=== PATIENT | female | born 1985 | race Caucasian/White ===

== ENCOUNTER 2016-12-26 11:07 | Emergency (ER) | payer SELFPAY ==
[2016-12-26 11:16] VITALS: BP 129/80; TEMP 98.2; O2SAT 96
[2016-12-26] MEDS ORDERED: LIDOCAINE 1% W/ EPINEPHRINE 20 ML VIAL INJ ONE (11:37)
--- NOTE | 2016-12-26 11:38 | ED.PDOC ---
History of Present Illness - General Chief Complaint: Skin/Abrasion/Tear Stated Complaint: abscess right groin Time Seen by Provider: 12/26/16 11:31 Source: patient Exam Limitations: no limitations - History of Present Illness Initial Comments: She stated that started as painful knot one week ago and gradually got more painful and bigger tried warm tub bath but not getting better. Timing/Duration: other - 7 days Severity: moderate Improving Factors: nothing Worsening Factors: nothing Associated Symptoms: denies symptoms Allergies/Adverse Reactions: Allergies Cefaclor [From Ceclor] Allergy (Unknown, Verified 12/26/16 11:20) Home Medications: Ambulatory Orders Sulfamethoxazole-Trimethoprim [Bactrim Ds 800-160 mg] 1 tab PO BID #20 tab 12/26 Tramadol HCl 50 mg PO Q6HR PRN #20 tab 12/26/16 Review of Systems - Review of Systems Constitutional: States: no symptoms reported EENTM: States: no symptoms reported Respiratory: States: no symptoms reported Cardiology: States: no symptoms reported Gastrointestinal/Abdominal: States: no symptoms reported Genitourinary: States: no symptoms reported Musculoskeletal: States: no symptoms reported Skin: States: see HPI Neurological: States: no symptoms reported Past Medical History (General) - Patient Medical History Hx Seizures: No Hx Stroke: No Hx Dementia: No Hx Asthma: No Hx of COPD: No Hx Cardiac Disorders: No Hx Congestive Heart Failure: No Hx Pacemaker: No Hx Hypertension: No Hx Thyroid Disease: No Hx Diabetes: No Hx Gastroesophageal Reflux: No Hx Renal Disease: No Hx Cancer: No Hx of HIV: No Hx Hepatitis C: No Hx MRSA: No Surgical History: appendectomy - Vaccination History Hx Tetanus, Diphtheria Vaccination: No Hx Influenza Vaccination: No Hx Pneumococcal Vaccination: No - Social History Hx Tobacco Use: Yes Hx Alcohol Use: No Hx Substance Use: No Hx Substance Use Treatment: No Hx Depression: No - Female History Patient is a Female of Child Bearing Age (10 -59 yrs old): Yes Patient : No Family Medical History - Family History Mother Living Status: Hx Family Cancer: Yes - breast with repeated METs Physical Exam - Physical Exam General Appearance: Alert, Comfortable, No apparent distress Eye Exam: bilateral normal Ears, Nose, Throat: hearing grossly normal, normal ENT inspection, normal pharynx Neck: non-tender, full range of motion, supple Respiratory: chest non-tender, lungs clear, normal breath sounds, no respiratory distress, no accessory muscle use Cardiovascular/Chest: normal peripheral pulses, regular rate, rhythm, no edema, no gallop, no murmur Gastrointestinal/Abdominal: normal bowel sounds, non tender, soft, no organomegaly Extremity: normal range of motion, non-tender, normal inspection Neurologic: no motor/sensory deficits, alert, normal mood/affect, oriented x 3 Skin Exam: normal color, warm/dry, other - tender swelling 2 cm x 3 cm right groin with surrounding induration Procedures - Incision and Drainage #1 Site: right groin Procedure and Prep: sterile drapes applied - then skin incision made with blade 11,cotton tip applicator to break loculation, sterile dressings applied, gauze wick placed, irrigated, pus drained - 5 ml., other - chlorhexidine prep Departure - Departure Clinical Impression: Abscess of groin, right Time of Disposition: 12:17 Disposition: Discharge to Home or Self Care Condition: Good Instructions: DI for Skin Abscess Prescriptions: Tramadol HCl 50 mg PO Q6HR PRN #20 tab PRN Reason: Pain -- Generalized Sulfamethoxazole-Trimethoprim [Bactrim Ds 800-160 mg] 1 tab PO BID #20 tab Home Medications: Ambulatory Orders Sulfamethoxazole-Trimethoprim [Bactrim Ds 800-160 mg] 1 tab PO BID #20 tab 12/26 Tramadol HCl 50 mg PO Q6HR PRN #20 tab 12/26/16 Additional Instructions: RETURN TO EMERGENCY ROOM -[facility] for removal of packing 12/26/2016 PM
[2016-12-26] MEDS ORDERED: CHLORHEXIDINE GLUCONATE 4 % 15 ML UD TOP ONE (11:40)
[2016-12-26] MEDS ORDERED: NEOMYCIN-BACITRACIN-POLYMYXIN 0.9 GM UD TOP ONE (11:45)
[2016-12-26] MEDS ORDERED: TETANUS,DIPHTHERIA,PERTUSSIS 1 EA SYG IM ONE (12:16)
[2016-12-26] MEDS: SULFA/TRIMETH 800/160 (DS) TAB 1 EA TAB PO ONE ×2 (12:30→12:39)
== END 2016-12-26 12:40 | disposition home or self-care (01) ==
LOC: ER 11:07
DX: L02.214 Cutaneous abscess of groin (principal); Z23 Encounter for immunization; Z87.891 Personal history of nicotine dependence; Z88.3 Allergy status to other anti-infective agents

== ENCOUNTER 2017-03-21 09:38 | Emergency (ER) | payer SELFPAY ==
[2017-03-21] MEDS ORDERED: IPRATROPIUM/ALBUTEROL 3 ML VIAL NEB ONE (09:45)
--- NOTE | 2017-03-21 09:47 | ED.PDOC ---
History of Present Illness - General Chief Complaint: Respiratory Problem Stated Complaint: cough, congestion Time Seen by Provider: 03/21/17 09:39 Source: patient Exam Limitations: no limitations - History of Present Illness Initial Comments: the patient is a 32-year-old female presented to the emergency room secondary to one week of productive cough and fatigue. She is uncertain if she has had a fever. The patient does smoke. She does work at a [employer]. She reports the cough is mildly productive. No blood. No real chest pain other than with coughing. No history of pneumonia or COPD. Timing/Duration: 1 week Severity: moderate Improving Factors: nothing Worsening Factors: nothing Associated Symptoms: cough, malaise, shortness of breath Allergies/Adverse Reactions: Allergies Cefaclor [From Ceclor] Allergy (Unknown, Verified 03/21/17 09:46) Home Medications: Ambulatory Orders Azithromycin 500 mg PO DAILY #5 tab 03/21/17 predniSONE [Prednisone] 20 mg PO DAILY #3 tab 03/21/17 Review of Systems - Review of Systems Constitutional: States: fever, malaise EENTM: States: nose congestion Respiratory: States: cough, short of breath, wheezing - mildmild Cardiology: States: no symptoms reported Gastrointestinal/Abdominal: States: no symptoms reported Genitourinary: States: no symptoms reported Musculoskeletal: States: no symptoms reported Skin: States: no symptoms reported Neurological: States: no symptoms reported Endocrine: States: no symptoms reported Hematologic/Lymphatic: States: no symptoms reported All other Systems: No Change from Baseline Past Medical History (General) - Patient Medical History Hx Seizures: No Hx Stroke: No Hx Dementia: No Hx Asthma: No Hx of COPD: No Hx Cardiac Disorders: No Hx Congestive Heart Failure: No Hx Pacemaker: No Hx Hypertension: No Hx Thyroid Disease: No Hx Diabetes: No Hx Gastroesophageal Reflux: No Hx Renal Disease: No Hx Cancer: No Hx of HIV: No Hx Hepatitis C: No Hx MRSA: No Surgical History: no surgical history - Vaccination History Hx Tetanus, Diphtheria Vaccination: Yes Hx Influenza Vaccination: No Hx Pneumococcal Vaccination: No - Social History Hx Tobacco Use: Yes Hx Alcohol Use: No Hx Substance Use: No Hx Substance Use Treatment: No Hx Depression: No - Female History Patient is a Female of Child Bearing Age (10 -59 yrs old): Yes Patient : No Family Medical History - Family History Mother Living Status: Hx Family Cancer: Yes - breast with repeated METs Physical Exam - Physical Exam General Appearance: Alert, Comfortable, No apparent distress Eye Exam: bilateral normal Ears, Nose, Throat: hearing grossly normal, normal pharynx, nasal congestion Neck: non-tender, full range of motion, supple Respiratory: chest non-tender, no respiratory distress, no accessory muscle use , rales - in the right lower lobe Cardiovascular/Chest: normal peripheral pulses, regular rate, rhythm, no edema Peripheral Pulses: radial,right: 2+, radial,left: 2+, dorsalis pedis,right: 2+, dorsalis pedis,left: 2+ Gastrointestinal/Abdominal: non tender, soft Rectal Exam: deferred Back Exam: normal inspection, no CVA tenderness, no vertebral tenderness Extremity: normal range of motion, non-tender, normal inspection, no pedal edema , normal capillary refill Neurologic: alert, normal mood/affect, oriented x 3 Skin Exam: normal color Comments: Vital Signs - 24 hr 03/21/17 09:40 Temperature 98.2 F Pulse Rate [ 68 Left Radial] Respiratory 16 Rate Blood Pressure 116/94 [Left Arm] O2 Sat by Pulse 98 Oximetry Progress - Progress Progress: 03/21/17 09:50 the patient is a 32-year-old female presenting with what appears to be a small right lower lobe pneumonia. She is not hypoxic and not febrile. She is not in distress. The patient will be placed on azithromycin for the next 5 days and oral prednisone for the next 3 days. She needs to stop smoking at least for the next few weeks. When she goes back to work she does need to wear a mask. A humidifier at night may also help to move up secretions. ER warnings were given. She can follow up with her primary care doctor early next week. - Results/Orders Results/Orders: Vital Signs - 24 hr 03/21/17 09:40 Temperature 98.2 F Pulse Rate [ 68 Left Radial] Respiratory 16 Rate Blood Pressure 116/94 [Left Arm] O2 Sat by Pulse 98 Oximetry Departure - Departure Clinical Impression: Pneumonia Qualifiers: Pneumonia type: due to unspecified organism Laterality: right Lung location: lower lobe of lung Qualified Code(s): J18.9 - Pneumonia, unspecified organism Disposition: Discharge to Home or Self Care Departure Forms: ED Discharge - Pt. Copy, Patient Portal Self Enrollment Instructions: Pneumonia-Adult Diet: regular diet Activity: increase activity as tolerated Prescriptions: Azithromycin 500 mg PO DAILY #5 tab predniSONE [Prednisone] 20 mg PO DAILY #3 tab Home Medications: Ambulatory Orders Azithromycin 500 mg PO DAILY #5 tab 03/21/17 predniSONE [Prednisone] 20 mg PO DAILY #3 tab 03/21/17 Additional Instructions: the patient is a 32-year-old female presenting with what appears to be a small right lower lobe pneumonia. She is not hypoxic and not febrile. She is not in distress. The patient will be placed on azithromycin for the next 5 days and oral prednisone for the next 3 days. She needs to stop smoking at least for the next few weeks. When she goes back to work she does need to wear a mask. A humidifier at night may also help to move up secretions. ER warnings were given. She can follow up with her primary care doctor early next week.
[2017-03-21 10:32] VITALS: BP 135/77; TEMP 97; O2SAT 100
== END 2017-03-21 10:25 | disposition home or self-care (01) ==
LOC: ER 09:38
DX: J18.9 Pneumonia, unspecified organism (principal); F17.200 Nicotine dependence, unspecified, uncomplicated; Z88.3 Allergy status to other anti-infective agents
CPT/HCPCS: 94640; J7620

== ENCOUNTER 2017-07-16 07:55 | Emergency (ER) | payer SELFPAY ==
[2017-07-16 08:10] VITALS: TEMP 98.5
--- NOTE | 2017-07-16 08:12 | ED.PDOC ---
History of Present Illness - General Chief Complaint: Respiratory Problem Stated Complaint: Cough, congestion x 4 days Time Seen by Provider: 07/16/17 08:11 Source: patient Exam Limitations: no limitations - History of Present Illness Comments: Jessica Moreno 32 y/o female stated that she has productive cough of whitish phlegm for the last 4 days and nasal congestion.No fever no chills no ill contact. Timing/Duration: constant - 4 days ago, other Cough Quality/Degree: productive cough Possible Cause: unknown cause Improving Factors: nothing Worsening Factors: nothing Associated Symptoms: wheezing Respiratory Risk Factors: no cause identified Allergies/Adverse Reactions: Allergies Cefaclor [From Ceclor] Allergy (Unknown, Verified 07/16/17 08:05) Home Medications: Ambulatory Orders Albuterol Inhaler [Ventolin Hfa Inhaler] 108 mcg IN Q6HRS #1 inh 07/16/17 Azithromycin [Zithromax Z-Nadir] 1 ea PO DAILY #1 pack 07/16/17 Chlorpheniramine Maleate [Chlor-Trimeton Allergy] 12 mg PO BID #30 tab 07/16/17 Dextromethorphan-Guaifenesin [Mucinex Dm 30-600 mg] 1 tab PO BID #30 tab Review of Systems - Review of Systems Constitutional: States: no symptoms reported EENTM: States: see HPI, nose congestion Respiratory: States: see HPI Cardiology: States: no symptoms reported Gastrointestinal/Abdominal: States: no symptoms reported Genitourinary: States: no symptoms reported Past Medical History (General) - Patient Medical History Hx Seizures: No Hx Stroke: No Hx Dementia: No Hx Asthma: No Hx of COPD: No Hx Cardiac Disorders: No Hx Congestive Heart Failure: No Hx Pacemaker: No Hx Hypertension: No Hx Thyroid Disease: No Hx Diabetes: No Hx Gastroesophageal Reflux: No Hx Renal Disease: No Hx Cancer: No Hx of HIV: No Hx Hepatitis C: No Hx MRSA: No Surgical History: appendectomy - Vaccination History Hx Tetanus, Diphtheria Vaccination: Yes Hx Influenza Vaccination: No Hx Pneumococcal Vaccination: No - Social History Hx Tobacco Use: Yes Hx Alcohol Use: No Hx Substance Use: No Hx Substance Use Treatment: No Hx Depression: No - Activities of Daily Living Patient Lives Alone: No - family - Female History Patient is a Female of Child Bearing Age (10 -59 yrs old): Yes Hx Last Menstrual Period: 07/04/17 Patient : No Family Medical History - Family History Mother Living Status: Hx Family Asthma: Yes - daughter Hx Family Cancer: Yes - breast with repeated METs Physical Exam - Physical Exam General Appearance: Alert, No apparent distress Eye Exam: bilateral normal ENT Exam: normal ENT inspection, nasal congestion Neck: non-tender, supple Respiratory: wheezing - left lung Cardiovascular/Chest: normal peripheral pulses, regular rate, rhythm Gastrointestinal/Abdominal: non tender, soft, no organomegaly Extremity: no pedal edema, no calf tenderness Neurologic: alert, normal mood/affect, oriented x 3 Progress - Progress Progress: 07/16/17 09:07 Vital Signs - 8 hr 07/16/17 07/16/17 08:05 08:52 Temperature 98.5 F Pulse Rate 118 H Pulse Rate [ 122 H Left Radial] Respiratory 22 20 Rate Blood Pressure 132/83 [Left Arm] O2 Sat by Pulse 95 97 Oximetry - EKG/XRAY/CT XRAY: chest - no acute process Departure - Departure Clinical Impression: Acute bronchitis Qualifiers: Bronchitis organism: unspecified organism Qualified Code(s): J20.9 - Acute bronchitis, unspecified Time of Disposition: :08 Disposition: Discharge to Home or Self Care Condition: Good Departure Forms: ED Discharge - Pt. Copy, Patient Portal Self Enrollment Instructions: DI for Acute Bronchitis, Acute Bronchitis, Acute Bronchitis ( Alternative Therapy) Prescriptions: Albuterol Inhaler [Ventolin Hfa Inhaler] 108 mcg IN Q6HRS #1 inh Azithromycin [Zithromax Z-Nadir] 1 ea PO DAILY #1 pack Chlorpheniramine Maleate [Chlor-Trimeton Allergy] 12 mg PO BID #30 tab Dextromethorphan-Guaifenesin [Mucinex Dm 30-600 mg] 1 tab PO BID #30 tab Home Medications: Ambulatory Orders Albuterol Inhaler [Ventolin Hfa Inhaler] 108 mcg IN Q6HRS #1 inh 07/16/17 Azithromycin [Zithromax Z-Nadir] 1 ea PO DAILY #1 pack 07/16/17 Chlorpheniramine Maleate [Chlor-Trimeton Allergy] 12 mg PO BID #30 tab 07/16/17 Dextromethorphan-Guaifenesin [Mucinex Dm 30-600 mg] 1 tab PO BID #30 tab Additional Instructions: FOLLOW UP WITH PRIMARY MD 07 22 2017 call for appointment
[2017-07-16] MEDS ORDERED: IPRATROPIUM/ALBUTEROL 3 ML VIAL NEB ONE (08:27)
--- NOTE | 2017-07-16 08:51 | RAD ---
EXAM DESCRIPTION: Chest,2 Views CLINICAL HISTORY: cough COMPARISON: None available. FINDINGS: Frontal and lateral views of the chest. Cardiac silhouette and pulmonary vascularity are within normal limits. Lungs are clear without focal consolidative infiltrates. No pleural effusion. No pneumothorax. No acute osseous abnormality. IMPRESSION: No radiographic evidence for acute cardiopulmonary process. Electronically signed by: Chau Bustamante MD 07/16/2017 8:49 AM CDT
[2017-07-16 09:37] VITALS: BP 133/88
[2017-07-16 09:41] VITALS: O2SAT 91
== END 2017-07-16 09:41 | disposition home or self-care (01) ==
LOC: ER 07:55
DX: J20.9 Acute bronchitis, unspecified (principal); Z87.891 Personal history of nicotine dependence; Z88.3 Allergy status to other anti-infective agents
CPT/HCPCS: 71020; 94640; J7620

== ENCOUNTER 2017-10-13 08:53 | Emergency (ER) | payer SELFPAY ==
[2017-10-13] MEDS: IPRATROPIUM/ALBUTEROL 3 ML VIAL NEB ONE ×2 (08:53→10:05)
--- NOTE | 2017-10-13 08:57 | ED.PDOC ---
History of Present Illness - General Chief Complaint: Respiratory Problem Stated Complaint: chest congestion Time Seen by Provider: 10/13/17 08:55 Source: patient, RN notes reviewed Exam Limitations: no limitations - History of Present Illness Initial Comments: Jessica Heredia 32 y/o female stated that she started having cough,nasal congestion and wheezing the last 3 days which got worse today .No history of asthma,no fever ,no foreign travel.She admit to cigarette smoking. Timing/Duration: other - 3 days ago see hpi Severity: moderate Episode Description: see hpi Improving Factors: nothing Worsening Factors: nothing Associated Symptoms: wheezing, other - see hpi Respiratory Risk Factors: other - chronic smoking Allergies/Adverse Reactions: Allergies Cefaclor [From Ceclor] Allergy (Unknown, Verified 07/16/17 08:05) Home Medications: Ambulatory Orders Albuterol Inhaler [Ventolin Hfa Inhaler] 108 mcg IN Q4HR #1 inh 10/13/17 Benzonatate Perles [Tessalon Perles] 200 mg PO BID #30 cap 10/13/17 predniSONE 10 mg PO BID #10 tab 10/13/17 Review of Systems - Review of Systems Constitutional: States: no symptoms reported EENTM: States: see HPI Respiratory: States: see HPI Cardiology: States: no symptoms reported Gastrointestinal/Abdominal: States: see HPI Genitourinary: States: no symptoms reported All other Systems: Reviewed and Negative, No Change from Baseline Past Medical History (General) - Patient Medical History Hx Seizures: No Hx Stroke: No Hx Dementia: No Hx Asthma: No Hx of COPD: No Hx Cardiac Disorders: No Hx Congestive Heart Failure: No Hx Pacemaker: No Hx Hypertension: No Hx Thyroid Disease: No Hx Diabetes: No Hx Gastroesophageal Reflux: No Hx Renal Disease: No Hx Cancer: No Hx of HIV: No Hx Hepatitis C: No Hx MRSA: No Surgical History: appendectomy - Vaccination History Hx Tetanus, Diphtheria Vaccination: Yes Hx Influenza Vaccination: No Hx Pneumococcal Vaccination: No - Social History Hx Tobacco Use: Yes Hx Alcohol Use: No Hx Substance Use: No Hx Substance Use Treatment: No Hx Depression: No Hx Physical Abuse: No Hx Emotional Abuse: No Hx Suspected Abuse: No - Activities of Daily Living Patient Lives Alone: No - family Grooming Ability: Independent Eating (Feeding) Ability: Independent Toileting Ability: Standby Assistance - Female History Hx Last Menstrual Period: 10/13/17 Patient : No Family Medical History - Family History Mother Living Status: Hx Family Asthma: Yes - daughter Hx Family Cancer: Yes - breast with repeated METs Physical Exam - Physical Exam General Appearance: Alert, Comfortable, No apparent distress Eye Exam: bilateral normal ENT Exam: normal ENT inspection, hearing grossly normal, pharynx normal, nasal congestion Neck: non-tender, full range of motion, supple, trachea midline Respiratory: no respiratory distress, no accessory muscle use, expiration Cardiovascular/Chest: normal peripheral pulses, regular rate, rhythm, no murmur Gastrointestinal/Abdominal: normal bowel sounds, non tender, soft, no organomegaly Extremity: normal range of motion, non-tender, no pedal edema, no calf tenderness Neurologic: alert, normal mood/affect, oriented x 3 Skin Exam: normal color, warm/dry Lymphatic: no adenopathy Progress - Progress Progress: 10/13/17 09:12 Last Vital Signs Temp 97.8 F 10/13/17 08:55 Pulse 100 H 10/13/17 08:55 Resp 20 10/13/17 08:55 BP 143/96 10/13/17 08:55 Pulse Ox 98 10/13/17 08:55 Departure - Departure Clinical Impression: Reactive airway disease with wheezing with acute exacerbation Qualifiers: Asthma severity: mild intermittent Qualified Code(s): J45.21 - Mild intermittent asthma with (acute) exacerbation Time of Disposition: 09:57 Disposition: Discharge to Home or Self Care Condition: Fair Departure Forms: ED Discharge - Pt. Copy, Patient Portal Self Enrollment Instructions: DI for Reactive Airway Disease-Adult, Reactive Airway Disease- Adult, Reasons to Quit Smoking, Smoking Cessation Drugs: Nicotine Replacement Products, All Forms of Smoking Are Bad for You Prescriptions: Albuterol Inhaler [Ventolin Hfa Inhaler] 108 mcg IN Q4HR #1 inh Benzonatate Perles [Tessalon Perles] 200 mg PO BID #30 cap predniSONE 10 mg PO BID #10 tab Home Medications: Ambulatory Orders Albuterol Inhaler [Ventolin Hfa Inhaler] 108 mcg IN Q4HR #1 inh 10/13/17 Benzonatate Perles [Tessalon Perles] 200 mg PO BID #30 cap 10/13/17 predniSONE 10 mg PO BID #10 tab 10/13/17 Additional Instructions: NEED TO SIGN UP WITH PRIMARY [facility]-[phone] patient to call for appointment
[2017-10-13 09:06] VITALS: BP 143/96; TEMP 97.8
[2017-10-13] MEDS ORDERED: BENZONATATE PERLES 100 MG CAP PO ONE (09:13)
[2017-10-13] MEDS ORDERED: diphenhydrAMINE HCL 25 MG CAP PO ONE (09:13)
[2017-10-13] MEDS ORDERED: IPRATROPIUM/ALBUTEROL 3 ML VIAL NEB ONE (09:33)
--- NOTE | 2017-10-13 09:40 | RAD ---
EXAM DESCRIPTION: Chest,1 View CLINICAL HISTORY: Shortness of breath FINDINGS/ IMPRESSION: Comparison 07/16/2017 Normal cardiomediastinal silhouette. Lung volumes are slightly low from shallow inspiration. No edema, infiltrates or effusions. No pneumothorax Electronically signed by: Joseph Jeffrey MD 10/13/2017 9:39 AM [facility]
[2017-10-13 10:09] VITALS: O2SAT 97
== END 2017-10-13 10:30 | disposition home or self-care (01) ==
LOC: ER 08:53
DX: J45.21 Mild intermittent asthma with (acute) exacerbation (principal); F17.210 Nicotine dependence, cigarettes, uncomplicated
CPT/HCPCS: 36415; 71010; 80048; 85025; 94640; J7620; Q0163

== ENCOUNTER 2018-05-08 15:19 | Emergency (ER) | payer SELFPAY ==
[2018-05-08 15:35] VITALS: TEMP 96.7
[2018-05-08] MEDS ORDERED: KETOROLAC TROMETHAMINE INJ 60 MG/2 ML VIAL IM ONE (15:35)
[2018-05-08] MEDS ORDERED: PROMETHAZINE HCL INJ 25 MG/ML VIAL IM ONE (15:36)
[2018-05-08] MEDS ORDERED: SUMAtriptan SUCCINATE INJ 6 MG/0.5 ML VIAL SUBCU ONE (15:36)
--- NOTE | 2018-05-08 15:39 | ED.PDOC ---
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 SHE HAS HISTORY OF MIGRAINE AROUND HER MENSTRUAL CYCLES THAT LAST FOR A DAY OR TWO BUT NOT THIS LONG SHE HAS NO FEVER CHILLS NO SINUS DRAINAGE - History of Present Illness Timing/Duration: 1 week Quality: moderate, stabbing Head Injury Location: frontal Recent Head Trauma: no recent headache/trauma, frequent headaches, chronic headaches Improving Factors: nothing Worsening Factors: other - NOICE AND LIGHT Associated Symptoms: denies symptoms Allergies/Adverse Reactions: Allergies Cefaclor [From Ceclor] Allergy (Unknown, Verified 05/08/18 15:35) Home Medications: Ambulatory Orders Albuterol Inhaler [Ventolin Hfa Inhaler] 108 mcg IN Q4HR #1 inh 10/13/17 Benzonatate Perles [Tessalon Perles] 200 mg PO BID #30 cap 10/13/17 predniSONE 10 mg PO BID #10 tab 10/13/17 Tramadol HCl [Ultram] 50 mg PO Q6H PRN #30 tab 05/08/18 Review of Systems - Review of Systems Constitutional: States: no symptoms reported EENTM: States: no symptoms reported Respiratory: States: no symptoms reported Cardiology: States: no symptoms reported Gastrointestinal/Abdominal: States: no symptoms reported Genitourinary: States: no symptoms reported Musculoskeletal: States: no symptoms reported Skin: States: no symptoms reported Neurological: States: no symptoms reported Endocrine: States: no symptoms reported Hematologic/Lymphatic: States: no symptoms reported Past Medical History (General) - Patient Medical History Hx Seizures: No Hx Stroke: No Hx Dementia: No Hx Asthma: No Hx of COPD: No Hx Cardiac Disorders: No Hx Congestive Heart Failure: No Hx Pacemaker: No Hx Hypertension: No Hx Thyroid Disease: No Hx Diabetes: No Hx Gastroesophageal Reflux: No Hx Renal Disease: No Hx Cancer: No Hx of HIV: No Hx Hepatitis C: No Hx MRSA: No Surgical History: appendectomy - Vaccination History Hx Tetanus, Diphtheria Vaccination: Yes Hx Influenza Vaccination: No Hx Pneumococcal Vaccination: No - Social History Hx Tobacco Use: Yes Hx Alcohol Use: No Hx Substance Use: No Hx Substance Use Treatment: No Hx Depression: No Hx Physical Abuse: No Hx Emotional Abuse: No Hx Suspected Abuse: No - Female History Patient is a Female of Child Bearing Age (10 -59 yrs old): Yes Hx Last Menstrual Period: 10/13/17 Patient : No Family Medical History - Family History Mother Living Status: Hx Family Asthma: Yes - daughter Hx Family Cancer: Yes - breast with repeated METs Physical Exam - Physical Exam General Appearance: Alert, Comfortable Eyes, Ears, Nose, Throat Exam: PERRL/EOMI Neck: non-tender, full range of motion, supple Cardiovascular/Chest: normal peripheral pulses, no edema, no murmur, bradycardia Respiratory: chest non-tender Gastrointestinal/Abdominal: normal bowel sounds, non tender, no organomegaly Back Exam: normal inspection, no CVA tenderness, no vertebral tenderness Extremity: normal range of motion, non-tender, normal inspection 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 Copy, Patient Portal Self Enrollment Instructions: DI for Headache Diet: resume usual diet Prescriptions: Tramadol HCl [Ultram] 50 mg PO Q6H PRN #30 tab PRN Reason: Pain Home Medications: Ambulatory Orders Albuterol Inhaler [Ventolin Hfa Inhaler] 108 mcg IN Q4HR #1 inh 10/13/17 Benzonatate Perles [Tessalon Perles] 200 mg PO BID #30 cap 10/13/17 predniSONE 10 mg PO BID #10 tab 10/13/17 Tramadol HCl [Ultram] 50 mg PO Q6H PRN #30 tab 05/08/18
[2018-05-08 17:47] VITALS: BP 132/94; O2SAT 97
== END 2018-05-08 17:32 | disposition home or self-care (01) ==
LOC: ER 15:19
DX: G43.009 Migraine without aura, not intractable, without status migrainosus (principal)
CPT/HCPCS: J1885; J2550; J3030

== ENCOUNTER 2018-08-25 10:26 | Emergency (ER) | payer SELFPAY ==
[2018-08-25] MEDS ORDERED: BENZONATATE PERLES 100 MG CAP PO ONE (11:34)
--- NOTE | 2018-08-25 11:46 | ED.PDOC ---
History of Present Illness - General Chief Complaint: Respiratory Problem Time Seen by Provider: 08/25/18 11:25 Source: patient Exam Limitations: no limitations - History of Present Illness Initial Comments: Patient presents with a cough for three days. It is non-productive. She has had a headache associated with the cough. No known fevers. She has had mild nausea and loss of appetite but no vomiting. No ear pain. Her daughter has similar symptoms. Her is "just getting over a cold" according to him. No other complaints. She did have an influenza vaccination this year. Timing/Duration: other - 3 days Severity: moderate Improving Factors: nothing Worsening Factors: cold therapy Associated Symptoms: denies symptoms Allergies/Adverse Reactions: Allergies Cefaclor [From Ceclor] Allergy (Unknown, Verified 05/08/18 15:35) Home Medications: Ambulatory Orders Albuterol Inhaler [Ventolin Hfa Inhaler] 108 mcg IN Q4HR #1 inh 10/13/17 Benzonatate Perles [Tessalon Perles] 200 mg PO BID #30 cap 10/13/17 predniSONE 10 mg PO BID #10 tab 10/13/17 Tramadol HCl [Ultram] 50 mg PO Q6H PRN #30 tab 05/08/18 Benzonatate Perles [Tessalon Perles] 200 mg PO TID PRN #20 cap 08/25/18 Review of Systems - Review of Systems Constitutional: States: no symptoms reported EENTM: States: see HPI Respiratory: States: see HPI Cardiology: States: no symptoms reported Gastrointestinal/Abdominal: States: no symptoms reported Genitourinary: States: no symptoms reported Musculoskeletal: States: no symptoms reported Skin: States: no symptoms reported Neurological: States: no symptoms reported Endocrine: States: no symptoms reported Hematologic/Lymphatic: States: no symptoms reported Past Medical History (General) - Patient Medical History Hx Seizures: No Hx Stroke: No Hx Dementia: No Hx Asthma: No Hx of COPD: No Hx Cardiac Disorders: No Hx Congestive Heart Failure: No Hx Pacemaker: No Hx Hypertension: No Hx Thyroid Disease: No Hx Diabetes: No Hx Gastroesophageal Reflux: No Hx Renal Disease: No Hx Cancer: No Hx of HIV: No Hx Hepatitis C: No Hx MRSA: No Surgical History: appendectomy - Vaccination History Hx Tetanus, Diphtheria Vaccination: No Hx Influenza Vaccination: Yes Hx Pneumococcal Vaccination: No Immunizations Up to Date: No - Social History Hx Tobacco Use: Yes Hx Chewing Tobacco Use: No Hx Alcohol Use: No Hx Substance Use: No Hx Substance Use Treatment: No Hx Depression: No Feels Threatened In Home Enviroment: No Feels Threatened In a Relationship: No Hx Physical Abuse: No Hx Emotional Abuse: No Hx Suspected Abuse: No - Female History Patient is a Female of Child Bearing Age (10 -59 yrs old): No Hx Last Menstrual Period: 10/13/17 Patient : No Family Medical History - Family History Mother Living Status: Hx Family Asthma: Yes - daughter Hx Family Cancer: Yes - breast with repeated METs Physical Exam - Physical Exam General Appearance: Alert Eye Exam: bilateral normal Ears, Nose, Throat: other - Mild bilateral clear nasal exudates. No LAD. TMs clear. Neck: non-tender, full range of motion, supple Respiratory: lungs clear, normal breath sounds, no respiratory distress Cardiovascular/Chest: normal peripheral pulses, regular rate, rhythm, no edema Gastrointestinal/Abdominal: normal bowel sounds, non tender, soft Skin Exam: normal color Lymphatic: no adenopathy Progress - Progress Progress: 08/25/18 13:11 Rapid strep negative. Influenza negative. RSV pending. RSV ordered due to increasing evidence that it is often the cause of serious cough in older children and adults and is often undiagnosed. Patient received Tessalon Perles 200 mg po x one in the E.R. with excellent results. Care instructions given. E.R. warnings given. Questions were elicited and answered. The patient voiced understanding and agreement with the plan. Departure - Departure Clinical Impression: Upper respiratory infection Disposition: Discharge to Home or Self Care Departure Forms: ED Discharge - Pt. Copy, Patient Portal Self Enrollment Diet: resume usual diet Activity: increase activity as tolerated Prescriptions: Benzonatate Perles [Tessalon Perles] 200 mg PO TID PRN #20 cap PRN Reason: Cough Home Medications: Ambulatory Orders Albuterol Inhaler [Ventolin Hfa Inhaler] 108 mcg IN Q4HR #1 inh 10/13/17 Benzonatate Perles [Tessalon Perles] 200 mg PO BID #30 cap 10/13/17 predniSONE 10 mg PO BID #10 tab 10/13/17 Tramadol HCl [Ultram] 50 mg PO Q6H PRN #30 tab 05/08/18 Benzonatate Perles [Tessalon Perles] 200 mg PO TID PRN #20 cap 08/25/18 Additional Instructions: Increase oral fluids. Use over the counter cold formulas as directed. Return to the E.R. for a temperature above 100.4 or for increasing symptoms.
[2018-08-25 13:32] VITALS: BP 136/80; TEMP 99.1; O2SAT 98
== END 2018-08-25 13:32 | disposition home or self-care (01) ==
LOC: ER 10:26
DX: J06.9 Acute upper respiratory infection, unspecified (principal); Z87.891 Personal history of nicotine dependence

== ENCOUNTER 2018-10-23 19:49 | Emergency (ER) | payer SELFPAY ==
[2018-10-23] MEDS ORDERED: diphenhydrAMINE HCL 50 MG/ML VIAL IV ONE (20:04)
[2018-10-23] MEDS ORDERED: KETOROLAC TROMETHAMINE INJ 30 MG/ML VIAL IV ONE (20:05)
[2018-10-23] MEDS ORDERED: METOCLOPRAMIDE HCL INJ 10 MG/2 ML VIAL IV ONE (20:06)
--- NOTE | 2018-10-23 20:09 | ED.PDOC ---
History of Present Illness - General Chief Complaint: General Time Seen by Provider: 10/23/18 20:00 Source: patient Exam Limitations: no limitations - History of Present Illness Timing/Duration: 4-6 hours Severity: moderate Improving Factors: nothing Worsening Factors: nothing Associated Symptoms: cough, headaches, loss of appetite, weakness Allergies/Adverse Reactions: Allergies Cefaclor [From Ceclor] Allergy (Unknown, Verified 10/23/18 19:59) Hives Home Medications: Ambulatory Orders Ondansetron [Zofran Odt] 4 mg PO Q4HR PRN #15 tab 10/23/18 Review of Systems - Review of Systems Constitutional: States: no symptoms reported EENTM: States: no symptoms reported Respiratory: States: cough. Denies: short of breath, wheezing Cardiology: Denies: chest pain, edema Gastrointestinal/Abdominal: States: nausea. Denies: abdominal pain, vomiting Genitourinary: States: no symptoms reported Musculoskeletal: States: no symptoms reported Skin: States: no symptoms reported Neurological: States: headache Endocrine: States: no symptoms reported Hematologic/Lymphatic: States: no symptoms reported Past Medical History (General) - Patient Medical History Hx Seizures: No Hx Stroke: No Hx Dementia: No Hx Asthma: No Hx of COPD: No Hx Cardiac Disorders: No Hx Congestive Heart Failure: No Hx Pacemaker: No Hx Hypertension: No Hx Thyroid Disease: No Hx Diabetes: No Hx Gastroesophageal Reflux: No Hx Renal Disease: No Hx Cancer: No Hx of HIV: No Hx Hepatitis C: No Hx MRSA: No Surgical History: appendectomy - Vaccination History Hx Tetanus, Diphtheria Vaccination: No Hx Influenza Vaccination: Yes - 2018 Hx Pneumococcal Vaccination: No - Social History Hx Tobacco Use: Yes Hx Chewing Tobacco Use: No Hx Alcohol Use: No Hx Substance Use: No Hx Substance Use Treatment: No Hx Depression: No Hx Physical Abuse: No Hx Emotional Abuse: No Hx Suspected Abuse: No - Female History Patient is a Female of Child Bearing Age (10 -59 yrs old): Yes Hx Last Menstrual Period: 10/13/17 Patient : No Family Medical History - Family History Mother Living Status: Hx Family Asthma: Yes - daughter Hx Family Cancer: Yes - breast with repeated METs Physical Exam - Physical Exam General Appearance: Alert, Anxious Eye Exam: bilateral normal Ears, Nose, Throat: hearing grossly normal, normal pharynx Neck: non-tender, full range of motion, supple Respiratory: chest non-tender, no respiratory distress, rhonchi Cardiovascular/Chest: normal peripheral pulses, regular rate, rhythm Gastrointestinal/Abdominal: normal bowel sounds, non tender, soft Extremity: normal range of motion, non-tender, normal inspection Neurologic: alert, normal mood/affect, oriented x 3 Skin Exam: normal color, warm/dry Departure - Departure Clinical Impression: Headache Qualifiers: Headache type: other vascular headache Qualified Code(s): G44.1 - Vascular headache, not elsewhere classified Disposition: Discharge to Home or Self Care Departure Forms: ED Discharge - Pt. Copy, Patient Portal Self Enrollment Prescriptions: Ondansetron [Zofran Odt] 4 mg PO Q4HR PRN #15 tab PRN Reason: Nausea Home Medications: Ambulatory Orders Ondansetron [Zofran Odt] 4 mg PO Q4HR PRN #15 tab 10/23/18
[2018-10-23 21:19] VITALS: BP 131/86; TEMP 96.8; O2SAT 97
== END 2018-10-23 21:00 | disposition home or self-care (01) ==
LOC: ER 19:49
DX: R51 Headache (principal); R05 Cough; R53.1 Weakness; Z87.891 Personal history of nicotine dependence; Z88.1 Allergy status to other antibiotic agents
CPT/HCPCS: 36415; 80053; 85025; J1200; J1885; J2765

== ENCOUNTER 2020-02-07 13:06 | Emergency (ER) | payer SELFPAY ==
[2020-02-07] MEDS ORDERED: IBUPROFEN 200 MG TAB PO ONE (13:28)
[2020-02-07 13:29] VITALS: TEMP 98.3; O2SAT 97
[2020-02-07] MEDS ORDERED: CLINDAMYCIN HCL CAP 150 MG CAP PO ONE (13:29)
--- NOTE | 2020-02-07 13:32 | ED.PDOC ---
History of Present Illness - General Chief Complaint: Dental/Mouth Stated Complaint: toothache Time Seen by Provider: 02/07/20 13:10 Source: patient - History of Present Illness Initial Comments: 35 yo female who presents with cc of toothache. Ongoing for several days, worse today, located to right upper back molar, constant, throbbing, 9/10 severity now, radiates into upper jaw and face, mild swelling assoc'd, worse with chewing, tried Tylenol with little relief. Denies any drainage or fevers or ear pain. No recent injuries. Reports hx of several severe cavities. Does not have a dentist - states unable to see one because of current quarantine. Allergies/Adverse Reactions: Allergies Cefaclor [From Ceclor] Allergy (Unknown, Verified 10/23/18 19:59) Hives Home Medications: Ambulatory Orders Ondansetron [Zofran Odt] 4 mg PO Q4HR PRN #15 tab 10/23/18 Acetaminophen W/ Codeine [Tylenol W/ CODEINE #3] 1 ea PO Q6H PRN 5 Days #12 02/07/20 Clindamycin HCl [Clindamycin Hydrochloride] 300 mg PO Q6H 7 Days #28 cap 02/07/20 Review of Systems - Review of Systems Review of Systems: 02/07/20 13:31 as per HPI All other Systems: Reviewed and Negative Past Medical History (General) - Patient Medical History Hx Seizures: No Hx Stroke: No Hx Dementia: No Hx Asthma: No Hx of COPD: No Hx Cardiac Disorders: No Hx Congestive Heart Failure: No Hx Pacemaker: No Hx Hypertension: No Hx Thyroid Disease: No Hx Diabetes: No Hx Gastroesophageal Reflux: No Hx Renal Disease: No Hx Cancer: No Hx of HIV: No Hx Hepatitis C: No Hx MRSA: No Surgical History: appendectomy - Vaccination History Hx Tetanus, Diphtheria Vaccination: No Hx Influenza Vaccination: Yes - 2018 Hx Pneumococcal Vaccination: No - Social History Hx Tobacco Use: Yes Hx Chewing Tobacco Use: No Hx Alcohol Use: No Hx Substance Use: No Hx Substance Use Treatment: No Hx Depression: No Hx Physical Abuse: No Hx Emotional Abuse: No Hx Suspected Abuse: No - Female History Patient is a Female of Child Bearing Age (10 -59 yrs old): Yes Hx Last Menstrual Period: 10/13/17 Patient : No Family Medical History - Family History Mother Living Status: Hx Family Asthma: Yes - daughter Hx Family Cancer: Yes - breast with repeated METs Physical Exam - Physical Exam General Appearance: Alert, Comfortable, Obese Eye Exam: bilateral normal Ear Exam: bilateral ear: auricle normal, canal normal, TM normal Nasal Exam: normal inspection Throat Exam: pharynx normal, dental tenderness - Right 2nd maxillary molar severely decayed to gumline through dentin and enamel, several other teeth with similar decay throughout, R 2nd max molar with marked ttp without swelling/warmth/drainage. 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 Suspect also developing periapical abscess given swelling. Will place on Abx with Clindamycin 300 mg QID x7 days, first dose here. For pain, will give ibuprofen 800 mg in ED and send home with PRN Rx of Tylenol #3 for breakthrough pain. Discussed with pt she will need close f/u with dentist and a PCP to establish care. Discussed smoking cessation as well. -dc home in good condition Chris Hudson MD Billing #[id number] Departure - Departure Clinical Impression: Dental caries, Dental abscess Time of Disposition: 13:35 Disposition: Discharge to Home or Self Care Condition: Good Departure Forms: ED Discharge - Pt. Copy, Patient Portal Self Enrollment Instructions: DI for Dental Pain Diet: other - lukewarm soft mechanical diet Activity: increase activity as tolerated Prescriptions: Acetaminophen W/ Codeine [Tylenol W/ CODEINE #3] 1 ea PO Q6H PRN 5 Days #12 PRN Reason: Pain Clindamycin HCl [Clindamycin Hydrochloride] 300 mg PO Q6H 7 Days #28 cap Home Medications: Ambulatory Orders Ondansetron [Zofran Odt] 4 mg PO Q4HR PRN #15 tab 10/23/18 Acetaminophen W/ Codeine [Tylenol W/ CODEINE #3] 1 ea PO Q6H PRN 5 Days #12 02/07/20 Clindamycin HCl [Clindamycin Hydrochloride] 300 mg PO Q6H 7 Days #28 cap 02/07/20 Additional Instructions: Continue OTC medications for pain such as ibuprofen 600 mg every 6 hours, Tylenol 650 mg every 6 hours, and topical Orajel to affected area. You may take Tylenol #3 as directed for breakthrough pain but do not drive or operate heavy machinery when taking. Take the antibiotics as directed. Quit smoking. Follow up with your dentist for definitive treatment with dental extraction. Follow up with your primary care doctor in 1-2 weeks as well.
[2020-02-07 13:44] VITALS: BP 130/89
== END 2020-02-07 13:44 | disposition home or self-care (01) ==
LOC: ER 13:06
DX: K04.7 Periapical abscess without sinus (principal); K02.9 Dental caries, unspecified; F17.200 Nicotine dependence, unspecified, uncomplicated

== ENCOUNTER 2020-11-29 12:44 | Emergency (ER) | payer SELFPAY ==
[2020-11-29 13:00] VITALS: TEMP 97.2
--- NOTE | 2020-11-29 13:05 | ED.PDOC ---
History of Present Illness - General Chief Complaint: Lower Extremity Injury Stated Complaint: R Knee Pain Time Seen by Provider: 11/29/20 12:57 Source: patient Exam Limitations: no limitations - History of Present Illness Initial Comments: The patient is a 35-year-old female presented emergency room secondary to medial right knee pain that started after she was getting up from sitting on the floor. No real trauma. She felt a pop and a sharp pain. She does have generalized knee swelling now and some mild muscle spasm surrounding at this point. This occurred 4 days ago. She does have some point tenderness over the MCL and anserine bursa. Passive range of motion is preserved. Strength is preserved. Sensation is preserved. No laceration and no bruising. There is obvious swelling of the joint space. No significant increased warmth. No indication of overt infection. Anterior and posterior drawer signs are negative. Patient defers x-ray at this time as it would likely be of limited utility. Timing/Duration: other - 4 days Severity: moderate Improving Factors: immobilization Worsening Factors: movement Associated Symptoms: denies symptoms Allergies/Adverse Reactions: Allergies Cefaclor [From Ceclor] Allergy (Unknown, Verified 11/29/20 12:54) Darell Review of Systems - Review of Systems Constitutional: States: no symptoms reported EENTM: States: no symptoms reported Respiratory: States: no symptoms reported Cardiology: States: no symptoms reported Gastrointestinal/Abdominal: States: no symptoms reported Genitourinary: States: no symptoms reported Musculoskeletal: States: see HPI Skin: States: no symptoms reported Neurological: States: no symptoms reported Endocrine: States: no symptoms reported All other Systems: No Change from Baseline Past Medical History (General) - Patient Medical History Hx Seizures: No Hx Stroke: No Hx Dementia: No Hx Asthma: No Hx of COPD: No Hx Cardiac Disorders: No Hx Congestive Heart Failure: No Hx Pacemaker: No Hx Hypertension: No Hx Thyroid Disease: No Hx Diabetes: No Hx Gastroesophageal Reflux: No Hx Renal Disease: No Hx Cancer: No Hx of HIV: No Hx Hepatitis C: No Hx MRSA: No Surgical History: appendectomy - Vaccination History Hx Tetanus, Diphtheria Vaccination: No Hx Influenza Vaccination: Yes - 2018 Hx Pneumococcal Vaccination: No - Social History Hx Tobacco Use: Yes Hx Chewing Tobacco Use: No Hx Alcohol Use: No Hx Substance Use: No Hx Substance Use Treatment: No Hx Depression: No Hx Physical Abuse: No Hx Emotional Abuse: No Hx Suspected Abuse: No - Activities of Daily Living Hospice Agency (if applicable):: None - Female History Patient is a Female of Child Bearing Age (10 -59 yrs old): Yes Hx Last Menstrual Period: 10/13/17 Patient : No Family Medical History - Family History Mother Living Status: Hx Family Asthma: Yes - daughter Hx Family Cancer: Yes - breast with repeated METs Physical Exam - Physical Exam General Appearance: Alert, Comfortable, No apparent distress Eye Exam: bilateral normal Ears, Nose, Throat: hearing grossly normal Respiratory: no respiratory distress, no accessory muscle use Cardiovascular/Chest: normal peripheral pulses, no edema Peripheral Pulses: dorsalis pedis,right: 2+, dorsalis pedis,left: 2+, posterior tibialis,right: 2+, posterior tibialis,left: 2+ Rectal Exam: deferred Extremity: normal range of motion, no pedal edema, no calf tenderness, normal capillary refill, other - See history of present illness. 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 The patiently placed in a knee immobilizer for weightbearing purposes. When she is nonweightbearing she can do range of motion exercises. Topical heat may prove beneficial at this point. Additionally [id number] anti-inflammatory such as Motrin or Aleve should also help. If symptoms are failing to improve significantly over the next 2 weeks, then additional evaluation may be warranted. ER warnings are given. prasanna freed [phone] Departure - Departure Clinical Impression: MCL sprain of right knee Qualifiers: Encounter type: initial encounter Qualified Code(s): S83.411A - Sprain of medial collateral ligament of right knee, initial encounter Disposition: Discharge to Home or Self Care Condition: Fair Departure Forms: ED Discharge - Pt. Copy, Patient Portal Self Enrollment Instructions: DI for Leg Pain, Internal Derangement of the Knee Diet: regular diet Activity: no pushing/pulling with affected limb Additional Instructions: The patient is a 35-year-old female presented emergency room with what appears to be a right knee sprain primarily of the right MCL ligaments. The patiently placed in a knee immobilizer for weightbearing purposes. When she is nonweightbearing she can do range of motion exercises. Topical heat may prove beneficial at this point. Additionally [id number] anti-inflammatory such as Motrin or Aleve should also help. If symptoms are failing to improve significantly over the next 2 weeks, then additional evaluation may be warranted. ER warnings are given.
[2020-11-29 13:23] VITALS: BP 117/89; O2SAT 99
== END 2020-11-29 13:15 | disposition home or self-care (01) ==
LOC: ER 12:44
DX: S83.411A Sprain of medial collateral ligament of right knee, initial encounter (principal); Z87.891 Personal history of nicotine dependence; Z88.1 Allergy status to other antibiotic agents; X50.9XXA Other and unspecified overexertion or strenuous movements or postures, initial encounter; Y93.89 Activity, other specified; Y92.9 Unspecified place or not applicable